=== PATIENT | female | born 1940 ===

== ENCOUNTER 2018-04-25 08:00 | Outpatient (CLI) | payer OTHER ==
[2018-05-04] MEDS ORDERED: CLORAZEPATE PO (14:05)
[2018-05-04] MEDS ORDERED: FOLIC ACID1 MG PO (14:05)
[2018-05-04] MEDS ORDERED: ESCITALOPRAM OX20 MG PO (14:05)
[2018-05-04] MEDS ORDERED: ARICEPT10 MG PO (14:06)
[2018-05-04] MEDS ORDERED: LOSARTAN POTAS100 MG PO (14:06)
[2018-05-04] MEDS ORDERED: SYNTHROID75 MCG PO (14:06)
[2018-05-04] MEDS ORDERED: HYDROCHLOROTHIA25 MG PO (14:06)
[2018-05-04] MEDS ORDERED: METHOTREXATE PO (14:07)
[2018-05-04] MEDS ORDERED: GABAPENTIN100 MG PO (14:08)
== END 2018-04-25 08:16 | disposition home or self-care (01) ==
LOC: LAB 08:00 → RAD 08:00 → LAB 08:16
DX: R07.89 Other chest pain (principal); D64.89 Other specified anemias; D78.89 Other postprocedural complications of the spleen; D68.8 Other specified coagulation defects; N39.0 Urinary tract infection, site not specified; I10 Essential (primary) hypertension; R82.79 Other abnormal findings on microbiological examination of urine

== ENCOUNTER 2018-05-10 06:54 | Day surgery (SDC) | payer OTHER ==
[~2018-05-10 06:54] MED LIST: ARICEPT10 MG PO; CLORAZEPATE PO; ESCITALOPRAM OX20 MG PO; FOLIC ACID1 MG PO; GABAPENTIN100 MG PO; HYDROCHLOROTHIA25 MG PO; LOSARTAN POTAS100 MG PO; METHOTREXATE PO; SYNTHROID75 MCG PO
[2018-05-10] MEDS ORDERED: KEFLEX250 MG PO (14:09)
[2018-05-10] MEDS ORDERED: ULTRACET PO (14:09)
== END 2018-05-10 17:10 | disposition home or self-care (01) ==
LOC: CIR.AMB 06:54
DX: N39.46 Mixed incontinence (principal); N32.81 Overactive bladder
CPT/HCPCS: 64581; C1778

== ENCOUNTER 2018-05-17 06:55 | Day surgery (SDC) | payer OTHER ==
[~2018-05-17 06:55] MED LIST changes: +KEFLEX250 MG PO; +ULTRACET PO
== END 2018-05-17 14:55 | disposition home or self-care (01) ==
LOC: CIR.AMB 06:55
DX: N32.81 Overactive bladder (principal); N39.46 Mixed incontinence
CPT/HCPCS: 64590; C1767